=== PATIENT | male | born 1985 | race Caucasian/White ===

== ENCOUNTER 2022-02-15 11:53 | Outpatient (RCR) | payer MEDICAID, SELFPAY | END 2023-01-25 08:28 | disposition home or self-care (01) | PROVIDERS: PCP Family Medicine; Visit Provider Family Medicine | DX: M25.511 Pain in right shoulder (principal); G25.89 Other specified extrapyramidal and movement disorders; Z51.89 Encounter for other specified aftercare | CPT/HCPCS: 97110 ==

== ENCOUNTER 2022-09-19 07:52 | Outpatient (CLI) | payer MEDICAID, SELFPAY ==
--- NOTE | 2022-09-19 08:15 | CRLHL7_ITS ---
For Patients: As a result of the Century Cures Act, medical imaging exams and procedure reports are released immediately into your electronic medical record. You may view this report before your referring provider. If you have questions, please contact your health care provider. Indication: BULGE IN PELVIS Technique: Grayscale and color Doppler ultrasound of the inguinal soft tissues performed. Comparison: None Findings: Enlarged lymph nodes are present within the inguinal region bilaterally. On the left, there is a lymph node measuring 3.3 x 1.2 x 3.0 cm with a cortex measuring 7 millimeters. An additional lymph node is present within the more medial left inguinal region measuring 3.5 x 1.7 x 1.6 cm with a cortex measuring 1.5 cm. Within the right inguinal region there is an enlarged lymph node measuring 2.7 x 0.6 x 1.4 cm. A hernia is not visualized on the ultrasound. Impression: Bilateral inguinal adenopathy. A CT of the abdomen and pelvis with contrast is suggested for further evaluation of possible inguinal hernia. Dictated by Saad Callahan MD @ 09/19/2022 9:16:38 AM (Electronically Signed)
== END 2022-09-19 07:53 | disposition home or self-care (01) ==
LOC: US 07:54
PROVIDERS: PCP Family Medicine; Visit Provider Nurse Practitioner Family
DX: R10.9 Unspecified abdominal pain (principal)
CPT/HCPCS: 76857

== ENCOUNTER 2022-09-22 09:45 | Outpatient (CLI) | payer MEDICAID, SELFPAY | END 2022-09-22 09:46 | disposition home or self-care (01) | PROVIDERS: PCP Family Medicine; Visit Provider Physician Assistant Medical | DX: R31.9 Hematuria, unspecified (principal); K40.90 Unilateral inguinal hernia, without obstruction or gangrene, not specified as recurrent; R59.0 Localized enlarged lymph nodes; R63.4 Abnormal weight loss | CPT/HCPCS: 80076; 84443; 86480; 86592; 86593; 86701; 86702; 86703; 86780; 86803; 87086; 87491; 87536; 87591 ==

== ENCOUNTER 2022-09-22 11:56 | Outpatient (CLI) | payer MEDICAID, SELFPAY ==
--- NOTE | 2022-09-22 12:00 | CRLHL7_ITS ---
For Patients: As a result of the Century Cures Act, medical imaging exams and procedure reports are released immediately into your electronic medical record. You may view this report before your referring provider. If you have questions, please contact your health care provider. INDICATION: Pelvic lymphadenopathy. TECHNIQUE: CT abdomen and pelvis acquired with 79 cc Isovue 370 IV contrast. COMPARISON: Ultrasound 09/19/2022. FINDINGS: Lower chest: Unremarkable. Liver: Focal fatty infiltration adjacent to the falciform ligament. No suspicious masses. Gallbladder and bile ducts: Unremarkable. No stones or inflammation. No biliary ductal dilatation. Spleen: Unremarkable. Normal in size. No masses. Adrenal glands: Unremarkable. No nodules. Pancreas: Unremarkable. No mass or inflammation. Kidneys: Unremarkable. No suspicious masses, stones, or hydronephrosis. GI tract: Unremarkable. Normal in caliber. No sign of mass or inflammation. Normal appendix. Lymph nodes: Mildly prominent retroperitoneal lymph nodes. Enlarged left iliac chain lymph node measuring 1.7 x 1.3 cm (series 2, image 90). Bilateral inguinal lymphadenopathy, left greater than right. Largest lymph node measures 3.3 x 1.2 cm (series 2, image 115). Enlarged lymph node within the right inguinal canal measuring 2.3 x 1.6 cm (series 2, image 117). Vasculature: Unremarkable. Omentum/Peritoneum/Abdominal Wall: Unremarkable. No free air or significant free fluid. Pelvis: Unremarkable. Bones: Small sclerotic foci in the right iliac bone (series 2, image 89 and 99). IMPRESSION: 1. Bilateral inguinal lymphadenopathy including enlarged lymph node in the right inguinal canal, enlarged left iliac chain lymph node, and mildly prominent retroperitoneal lymph nodes. Findings are nonspecific, may be reactive however underlying lymphoproliferative disorder cannot be excluded. Recommend short-term follow-up to evaluate for resolution. Alternatively, this can be further characterized with tissue sampling. 2. Small sclerotic foci in the right iliac bone, nonspecific. 3. No additional acute abnormality of the abdomen or pelvis. Please note that all CT scans at this facility use dose modulation, iterative reconstruction, and/or weight-based dosing when appropriate to reduce radiation dose to as low as reasonably achievable. Dictated by Cristino Serna MD @ 09/22/2022 2:37:38 PM (Electronically Signed)
== END 2022-09-22 11:57 | disposition home or self-care (01) ==
LOC: CT 11:56
PROVIDERS: PCP Family Medicine; Visit Provider Physician Assistant Medical
DX: R59.0 Localized enlarged lymph nodes (principal); R31.9 Hematuria, unspecified; R63.4 Abnormal weight loss
CPT/HCPCS: 74177; 80076; 84443; 86480; 86703; 86803; 87086; 87491; 87591; Q9967

== ENCOUNTER 2022-10-25 10:25 | Outpatient (CLI) | payer MEDICAID, SELFPAY ==
--- NOTE | 2022-10-25 10:45 | CRLHL7_ITS ---
For Patients: As a result of the Century Cures Act, medical imaging exams and procedure reports are released immediately into your electronic medical record. You may view this report before your referring provider. If you have questions, please contact your health care provider. Indication: palpable/tender lump in left groin x 1 week Technique: Grayscale and color Doppler ultrasound of the left inguinal region performed. Comparison: CT 09/22/2022, ultrasound 09/19/2022. Findings: There is a phlegmonous type mass like area within the left inguinal subcutaneous fat with mixed areas of complex echogenicity/fluid, measuring in total 5.1 x 2.3 x 4.7 cm. Surrounding vascularity noted along with some internal enhancement related to some underlying intrinsic structure. Impression: Complex phlegmonous inflammatory masslike area within the left inguinal subcutaneous fat measuring up to 5.1 cm. The appearance has worsened compared to the prior exams. Surgical referral is recommended. Dictated by Saad Callahan MD @ 10/25/2022 11:33:22 AM (Electronically Signed)
== END 2022-10-25 10:26 | disposition home or self-care (01) ==
PROVIDERS: PCP Family Medicine; Visit Provider Physician Assistant Medical
DX: R59.0 Localized enlarged lymph nodes (principal); R19.09 Other intra-abdominal and pelvic swelling, mass and lump
CPT/HCPCS: 76857

== ENCOUNTER 2022-10-27 09:24 | Day surgery (SDC) | payer MEDICAID, SELFPAY ==
[2022-10-27] MEDS: LACTATED RINGERS 1000 ML 1,000 ML 100 ML IV (09:40)
[2022-10-27 10:01] VITALS: BP 99/58; PULSE 56; RESP 14; TEMP 36.8; O2SAT 97
[2022-10-27 10:03] VITALS: BMI 27.1
--- NOTE | 2022-10-27 12:54 | W.ANESCHARGE ---
Anesthesia Charges Start Date/Time Anesthesia Start Date: 10/27/22 Anesthesia Start Time: 13:18 Stop Date/Time Anesthesia Stop Date: 10/27/22 Anesthesia Stop Time: 13:57
--- NOTE | 2022-10-27 13:08 | PM.GSPRC ---
Operative Note Date of procedure: 10/27/22 Pre-op diagnosis: 1. 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 Left groin abscess in the setting of HIV and syphilis infection Post-op diagnosis: Same Type of Procedure: I and D left groin abscess with tissue biopsy Indications: The patient is a 37-year-old male with a recent diagnosis of HIV as well as the fullest. He was found to have inguinal lymphadenopathy. This is when he was diagnosed with both conditions. CT scan showed bilateral inguinal lymphadenopathy, worse on the left. In the left groin the area became more painful and more fluctuant and ultrasound showed a phlegmon. I was asked to see this patient by his primary care provider for possible biopsy/abscess drainage. Procedure Description: After discussing the risks and benefits of the procedure, the patient signed informed consent.? The operative site was marked and the patient was brought to the operating room and placed on the operating table in supine position.? Care was taken to pad the patient's pressure points.?? The patient was then given sedation by anesthesia.?? The operative site was then prepped and draped in the usual sterile fashion.? A time-out was then performed. Local anesthetic was injected into the skin and subcutaneous tissue of the left groin. Incision was made. Purulent fluid returned. This was sent for culture. An abscess cavity was encountered. There was some necrotic tissue around the wound edges, however this did not appear overtly like a necrotic lymph node. Tissue was sent for syphilis PCR. The abscess went down to muscle fascia. No lymph nodes were obviously seen in the immediate vicinity. The tissue was indurated and firm and therefore would make further node dissection difficult. At this point I elected to irrigate the abscess cavity and packed with a sterile dressing. ? The patient was then woken and transported to the recovery area in stable condition. ? The patient tolerated the procedure well. Findings: Left groin abscess. No overt lymph node necrosis noted. Anesthesia: [facility] [place] Surgeon: Jimena Choe MD Estimated blood loss (mL): 5 Additional Specimen Information: 1. Left groin abscess fluid for culture 2. Left groin tissue for syphilis PCR Condition: stable Disposition: same day
[2022-10-27] MEDS: BUPIVACAINE 0.25% 30 ML INJECTION (13:30)
[2022-10-27] MEDS: LIDOCAINE 1 % PF 30 ML INJECTION (13:30)
[2022-10-27 14:00] VITALS: BP 111/60; PULSE 60; RESP 14; TEMP 36.7; O2SAT 97
[2022-10-27 14:30] VITALS: BP 114/62; PULSE 57; RESP 14; O2SAT 97
[2022-10-27] MEDS: HYDROCODONE-ACETAMIN 5-325 MG 1 TAB PO (14:35)
== END 2022-10-27 14:46 | disposition home or self-care (01) ==
PROVIDERS: PCP Family Medicine; Visit Provider Surgery
PROC: (CPT 38500; principal; 2022-10-27 11:15)
DX: L02.214 Cutaneous abscess of groin (principal); R59.0 Localized enlarged lymph nodes; B20 Human immunodeficiency virus [HIV] disease
CPT/HCPCS: 10061; 00400; 36415; 87070; 87075; 87205; A9270; J2001; J2250; J2704; J3010; J3490; J7120

== ENCOUNTER 2022-10-31 07:43 | Outpatient (CLI) | payer MEDICAID, SELFPAY ==
--- NOTE | 2022-10-31 08:15 | CRLHL7_ITS ---
For Patients: As a result of the Century Cures Act, medical imaging exams and procedure reports are released immediately into your electronic medical record. You may view this report before your referring provider. If you have questions, please contact your health care provider. INDICATION: Headaches. Syphilis. HIV. TECHNIQUE: Multiplanar multisequence noncontrast MR images acquired through the brain. COMPARISON: None. FINDINGS: The ventricles and sulci are within normal limits for patient age. No mass effect or midline shift. No parenchymal signal abnormalities. No intracranial hemorrhage or pathologic extra-axial fluid collection. No diffusion restriction to suggest acute infarction. The major arterial flow voids of the skullbase are preserved. The globes are symmetric. Severe opacification of the right sphenoid sinus, likely secondary to a retention cyst. The mastoid air cells are clear. IMPRESSION: 1. No intracranial abnormality on this noncontrast exam. 2. Severe opacification of the right sphenoid sinus, likely secondary to a retention cyst. Dictated by Abiodun Tracy MD @ 10/31/2022 8:59:19 AM (Electronically Signed)
== END 2022-10-31 07:44 | disposition home or self-care (01) ==
LOC: MRI 07:43
PROVIDERS: PCP Family Medicine; Visit Provider Physician Assistant Medical
DX: A53.9 Syphilis, unspecified (principal); B20 Human immunodeficiency virus [HIV] disease; G43.909 Migraine, unspecified, not intractable, without status migrainosus; R59.0 Localized enlarged lymph nodes; J32.3 Chronic sphenoidal sinusitis
CPT/HCPCS: 70551

== ENCOUNTER 2023-04-14 13:30 | Outpatient (CLI) | payer MEDICAID, SELFPAY | END 2023-04-14 13:31 | disposition home or self-care (01) | LOC: NFLDUCREF 13:31 | PROVIDERS: PCP Family Medicine; Visit Provider Physician Assistant | DX: R07.9 Chest pain, unspecified (principal) | CPT/HCPCS: 84484; 85379 ==

== ENCOUNTER 2024-04-01 13:00 | Outpatient (RCR) | payer MEDICAID, OTHER, SELFPAY | END 2024-07-09 07:37 | disposition home or self-care (01) | PROVIDERS: PCP Family Medicine; Visit Provider Student in an Organized Health Care Education/Training Program | DX: M25.511 Pain in right shoulder (principal); M75.21 Bicipital tendinitis, right shoulder; S46.011A Strain of muscle(s) and tendon(s) of the rotator cuff of right shoulder, initial encounter; M75.41 Impingement syndrome of right shoulder; M62.81 Muscle weakness (generalized); Z51.89 Encounter for other specified aftercare | CPT/HCPCS: 97110; 97140; 97161; 97164 ==